=== PATIENT | male | born 1960 | race African-American/Black ===

== ENCOUNTER → 2023-12-09 07:30 | Outpatient (REF) | payer BC, SELFPAY ==
[2023-12-09 08:29] LABS: % Basophils 0.5 % (0-2); % Eosinophils 1.1 % (0-6); % Immature Granulocytes 0.7 % (0-0.5); % Lymphocytes 32.5 % (20.5-51.1); % Monocytes 9.2 % (1.7-9.3); Absolute Eosinophils 0.1 10^3/uL (0-0.7); Absolute Lymphocytes 1.4 10^3/uL (1.2-3.4); Absolute Monocytes 0.4 10^3/uL (0.1-0.6); Absolute Neutrophils 2.5 10^3/uL (1.4-6.5); Hematocrit 43.6 % (39.0-52.0); Hemoglobin 14.4 g/dL (13.0-18.0); Mean Corpuscular Hgb 27.9 pg (27.0-31.0); Mean Corpuscular Volume 84.5 fL (80.0-94.0); Mean Platelet Volume 10.6 fL (7.4-10.4); Nucleated Red Blood Cells % 0 % (-); Platelet Count 172 10^3/uL (130-400); Red Blood Cell Count 5.16 10^6/uL (4.70-6.10); Red Cell Dist. Width 13.7 % (11.5-14.5); White Blood Cell Count 4.4 10^3/uL (4.8-10.8)
[2023-12-09 08:41] LABS: ALT (SGPT) 40 U/L (0-50); AST (SGOT) 41 U/L (17-59); Albumin 4.4 g/dl (3.5-5.0); Alkaline Phosphatase 75 U/L (38-126); Blood Urea Nitrogen 19 mg/dl (9-20); Calcium 9.7 mg/dl (8.4-10.2); Carbon Dioxide 34 mmol/L (22-30); Chloride 98 mmol/L (98-107); Glucose 123 mg/dl (70-99); HDL Cholesterol 47 mg/dl; LDL Cholesterol, Calculated 72 mg/dl; Potassium 3.8 mmol/L (3.5-5.1); Sodium 138 mmol/L (135-145); Total Cholesterol 140 mg/dl (50-199); Total Protein 7.4 g/dl (6.3-8.2); Triglyceride 106 mg/dl (10-149); Very Low Density Lipoprotein 21 mg/dl (0-30); eGFR > 60.00
[2023-12-09 08:49] LABS: Urine Albumin Negative (Neg - Trace); Urine Bilirubin 1+ (Negative); Urine Character Clear (Clear); Urine Color Yellow; Urine Glucose 3+ (Negative); Urine Ketone Negative (Negative); Urine Leukocyte Negative (Negative); Urine Nitrite Negative (Negative); Urine Occult Blood Negative (Negative); Urine Specific Gravity 1.015 (<1.030); Urine Urobilinogen Negative (Neg - 1+)
[2023-12-09 09:11] LABS: TSH 1.46 uIU/ml (0.47-4.68)
[2023-12-09 11:05] LABS: Glycohemoglobin (HgbA1c) 7.4 % (4.0-5.6)
[2023-12-09 12:13] LABS: Microalbumin, Random Urine 0.9 mg/dl (0.6-1.7); Microalbumin/creatinine Ratio 4.3 mg/g
== END ==
LOC: REG 07:30
PROVIDERS: ATTENDING PHYSICIAN Family Medicine
DX: E11.69 Type 2 diabetes mellitus with other specified complication (principal); E78.5 Hyperlipidemia, unspecified; I10 Essential (primary) hypertension; E66.9 Obesity, unspecified; E11.59 Type 2 diabetes mellitus with other circulatory complications
CPT/HCPCS: 36415; 80053; 80061; 81003; 82043; 82570; 83036; 84443; 85025

== ENCOUNTER 2024-05-05 17:16 | Emergency (ER) | payer BC, SELFPAY ==
[2024-05-05 17:37] VITALS: BP 157/91
--- NOTE | 2024-05-05 18:45 | ED.GENMED ---
History of Present Illness
General
Chief Complaint: Fall
Source: patient
Exam Limitations: none
Time Seen by Provider: 05/05/24 18:07
Nursing documentation reviewed up to this point in time: agreed with
History of Present Illness
History of Present Illness:
Patient states he fell whileworking on roof. Sustained lac to mucosa of lower lip. He was seen at and told to come to ED for lac repair. NO other complaints. No LOC. Did not fall off roof.
Past History
Past History
ED Past Medical History: HTN, Hypercholesterolemia, IDDM, NV and Psychiatric
ED Past Surgical History: Cardiac
Social History
Tobacco: Non-smoker
Alcohol: Occasional
Drug: None
Personal:
Living: with family
Employment: Employed
Family History
Family History: Other (No significant)
Review of Systems
Review of Systems
Allergies reviewed?: Yes
All Other Systems: ROS reviewed and negative except as documented in HPI and ROS
Constitutional: Reports no symptoms
EENT: Reports other (laceration to mucosal surface lower lip.)
Respiratory: Reports no symptoms
Cardiac: Reports no symptoms
ABD/GI: Reports no symptoms
: Reports no symptoms
Musculoskeletal: Reports no symptoms
Skin: Reports no symptoms
Neurological: Reports no symptoms
Psychiatric: Reports no symptoms
Phy Exam
General Physical Exam
General Presentation: well appearing and no apparent distress
General age: appears stated age
General Skin: warm and dry
General Habitus: normal
General Mental: alert
ENT Exam
Additional ENT: 2cm vertical lac lower lip. NO dental injury. NO jaw pain
Neurological Exam
Neurological Exam: alert and oriented x3
Musculoskeletal Exam
Musculoskeletal Exam: full ROM
Skin Exam
Skin Exam: normal color, warm/dry and no rash
Psychiatric Exam
Psychiatric Exam: normal mood/affect
Course
Vital Signs
Initial and Last Documented VS:
Initial Vital Signs
Pulse Resp BP Pulse Ox
61 18 157/91 99
05/05/24 17:37 05/05/24 17:37 05/05/24 17:37 05/05/24 17:37
Last Documented Vital Signs
Pulse Resp BP Pulse Ox
61 18 157/91 99
05/05/24 17:37 05/05/24 17:37 05/05/24 17:37 05/05/24 17:37
Procedures
Laceration Closure
Lower Lip:
Status of Wound: clean
Description of Wound Edges: sharp
Preparation: cleaned with saline
Anesthesia: 1% Lidocaine
Revision/Debridement: routine- no revision
Wound exploration: explored to base- no FB
Type of Closure: single layer closure
Skin Closure Material: 4-0 chromic gut
Number of sutures: 3
*Critical Care Note
Total Time (30-74mins, 75-104mins- exclusive of procedures): Not Applicable
ED Attending Note
-
Portions of this chart may have been created with voice recognition software.� Occasional wrong word or��sound alike� substitutions may have occurred due to the inherent limitations of voice recognition software.
Discharge Plan
Departure
Patient Disposition: Home (Routine Discharge)
Date of Disposition: 05/05/24
Time of Disposition: 18:22
Patient with high blood pressure during this ER visit?: No
Condition: Good
Covid-19: Not Applicable
Discharge Problem:
Laceration of lip
Instructions: Soft Diet, Laceration Repair With Stitches (DC), Using Cold for Pain, Wound Inside The Mouth
Prescriptions:
No Action
losartan-hydrochlorothiazide 1 TAB tablet
1 tab PO DAILY
Patient Comments:
pt. does not know the dose.
escitalopram oxalate 20 MG tablet
20 mg PO DAILY
metformin 500 MG tablet
500 mg PO BID
insulin detemir U-100 [Levemir FlexTouch U100 Insulin] 300 UNIT/3 ML insulin pen
12 unit SC HS
atorvastatin 80 MG tablet
80 mg PO QPM Qty: 30 11RF
aspirin 81 MG tablet,chewable
81 mg PO DAILY Qty: 30 11RF
metoprolol succinate 25 MG tablet extended release 24 hr
25 mg PO DAILY Qty: 30 5RF
ticagrelor [Brilinta] 90 MG tablet
90 mg PO BID Qty: 60 11RF
dapagliflozin propanediol [Farxiga] 10 MG tablet
10 mg PO DAILY Qty: 30 5RF
Activity Restrictions/Additional Instructions:
Sutures are dissolvable. Follow up with your family doctor.
Interventions
Interventions:
*Risk Screen - Suicide Last Done: 05/05/24 17:37
*General Assessment Last Done: 05/05/24 18:28
*Neglect/Abuse Screening Last Done: 05/05/24 17:37
*ED COVID-19 Vaccine History Last Done: 05/05/24 18:28
*Nursing Disposition Last Done: 05/05/24 18:34
ED-Musculoskeletal Assessment Last Done: 05/05/24 18:28
ED- Neurological Assessment Last Done: 05/05/24 18:28
ED-Skin Assessment Last Done: 05/05/24 18:28
Discharge Date and Time
Discharge Date/Time: 05/05/24 18:38
Print Language: BANGLADESHI
Skin Exam
Laceration
Lower Lip:
Length in cm: 2
Orientation: vertical
Type of Laceration: simple
Any active bleeding?: no active bleeding
Distal skin color and temperature: normal-warm & good color
Normal distal neurovascular exam: Yes
Range of motion: full
== END 2024-05-05 18:38 | disposition home or self-care (01) ==
LOC: EMR 17:16
PROVIDERS: EMERGENCY PHYSICIAN Emergency Medicine; FAMILY PHYSICIAN Family Medicine
DX: S01.511A Laceration without foreign body of lip, initial encounter (principal); W19.XXXA Unspecified fall, initial encounter; I10 Essential (primary) hypertension
CPT/HCPCS: 99282; 12011

== ENCOUNTER → 2024-07-11 08:33 | Outpatient (REF) | payer BC, SELFPAY ==
[2024-07-11 10:00] LABS: ALT (SGPT) 38 U/L (0-50); AST (SGOT) 34 U/L (17-59); Albumin 4.6 g/dl (3.5-5.0); Alkaline Phosphatase 90 U/L (38-126); Blood Urea Nitrogen 15 mg/dl (9-20); Calcium 9.6 mg/dl (8.4-10.2); Carbon Dioxide 32 mmol/L (22-30); Chloride 100 mmol/L (98-107); Glucose 170 mg/dl (70-99); Potassium 4.5 mmol/L (3.5-5.1); Sodium 140 mmol/L (135-145); Total Bilirubin 0.7 mg/dl (0.2-1.3); Total Protein 7.3 g/dl (6.3-8.2); eGFR > 60.00
[2024-07-11 10:18] LABS: Glycohemoglobin (HgbA1c) 7.7 % (4.0-5.6)
[2024-07-11 10:46] LABS: Microalbumin, Random Urine 2.2 mg/dl (0.6-1.7)
== END ==
LOC: REG 08:33
PROVIDERS: ATTENDING PHYSICIAN Family Medicine
DX: E11.69 Type 2 diabetes mellitus with other specified complication (principal)
CPT/HCPCS: 36415; 80053; 82043; 82570; 83036

== ENCOUNTER → 2024-07-30 07:19 | Outpatient (REF) | payer BC, SELFPAY | LOC: HWRCS 07:19 | PROVIDERS: ATTENDING PHYSICIAN Nurse Practitioner; FAMILY PHYSICIAN Family Medicine | DX: I10 Essential (primary) hypertension (principal); I25.10 Atherosclerotic heart disease of native coronary artery without angina pectoris | CPT/HCPCS: 93306 ==

== ENCOUNTER → 2024-08-30 15:16 | Outpatient (REF) | payer BC, SELFPAY ==
[2024-08-30 17:43] LABS: Folate 11.1 ng/ml (2.76-20); Vitamin B12 673 pg/ml (239-931)
== END ==
LOC: REG 15:16
PROVIDERS: ATTENDING PHYSICIAN Otolaryngology
DX: R43.0 Anosmia (principal); K14.0 Glossitis
CPT/HCPCS: 36415; 82607; 82746; 86038

== ENCOUNTER → 2024-11-14 14:18 | Outpatient (REF) | payer BC, SELFPAY | LOC: DHSLP 14:18 | PROVIDERS: ATTENDING PHYSICIAN Internal Medicine Critical Care Medicine; FAMILY PHYSICIAN Family Medicine | DX: G47.30 Sleep apnea, unspecified (principal); R06.83 Snoring | CPT/HCPCS: 95800 ==

== ENCOUNTER → 2025-04-05 07:18 | Outpatient (REF) | payer BC, SELFPAY ==
[2025-04-05 08:59] LABS: Microalbumin, Random Urine <0.6 mg/dl (0.6-1.7)
[2025-04-05 09:00] LABS: ALT (SGPT) 61 U/L (0-50); AST (SGOT) 42 U/L (17-59); Albumin 4.6 g/dl (3.5-5.0); Alkaline Phosphatase 95 U/L (38-126); Blood Urea Nitrogen 22 mg/dl (9-20); Calcium 9.6 mg/dl (8.4-10.2); Carbon Dioxide 31 mmol/L (22-30); Chloride 103 mmol/L (98-107); Glucose 108 mg/dl (70-99); HDL Cholesterol 45 mg/dl; LDL Cholesterol, Calculated 69 mg/dl; Potassium 5.0 mmol/L (3.5-5.1); Sodium 138 mmol/L (135-145); Total Protein 7.6 g/dl (6.3-8.2); Very Low Density Lipoprotein 17 mg/dl (0-30); eGFR > 60.00
[2025-04-05 09:04] LABS: Microalb - Urine Creatinine 124.300 mg/dl
[2025-04-05 09:26] LABS: PSA, Total - Screen 4.53 ng/ml (0.0-4.0)
[2025-04-05 10:32] LABS: Glycohemoglobin (HgbA1c) 6.4 % (4.0-5.6)
== END ==
LOC: REG 07:18
PROVIDERS: ATTENDING PHYSICIAN Family Medicine
DX: E11.69 Type 2 diabetes mellitus with other specified complication (principal); N40.1 Benign prostatic hyperplasia with lower urinary tract symptoms
CPT/HCPCS: 36415; 80053; 80061; 82043; 82570; 83036; G0103